=== PATIENT | male | born 1980 | race Caucasian/White ===

== ENCOUNTER → 2019-05-19 | Outpatient (CLI) | payer OTHER ==
[2019-05-19 10:10] VITALS: BP 143/85
== END ==
LOC: OD 09:17 → EDSTATUS 05-21 09:00
PROVIDERS: ATTEND Orthopaedic Surgery
DX: Z53.9 Procedure and treatment not carried out, unspecified reason (principal)

== ENCOUNTER 2019-06-30 08:01 | Inpatient (IN) | payer OTHER ==
[~2019-06-30 08:01] MED LIST: CEFAZOLIN SODIUM 2 GM in DEXTROSE 5%-WATER 100 ML IV PRN; LACTATED RINGERS 1000 ML IV PRN; LIDOCAINE 0.5% INJ-PF (5 MG/ML) 50 ML SDV SUBCUT PRN
[2019-06-30] MEDS ORDERED: DEXAMETHASONE SOD PHOSPHATE INJ 4 MG/1 ML VIAL ONE (08:49)
[2019-06-30] MEDS ORDERED: ONDANSETRON HCL INJ/PF 4 MG/2 ML SDV ONE (08:49)
[2019-06-30] MEDS ORDERED: SUCCINYLCHOLINE CHLORIDE INJ 200 MG/10 ML VIAL ONE (08:49)
[2019-06-30] MEDS ORDERED: MINERAL OIL (STERILE) 10 ML VIAL ONE (10:51)
[2019-06-30] MEDS ORDERED: HEPARIN SOD (PORCINE) 1,000 UNIT/ML 10 ML VIAL ONE (10:51)
[2019-06-30] MEDS ORDERED: BUPIVACAINE HCL 0.5 % INJ/PF 30 ML SDV ONE (10:51)
[2019-06-30] MEDS ORDERED: BACITRACIN INJ 50,000 UNIT VIAL ONE ×2 (10:52→11:27)
[2019-06-30] MEDS ORDERED: FENTANYL CITRATE INJ/PF 100 MCG/2 ML AMPUL ONE (11:03)
[2019-06-30] MEDS ORDERED: HYDROMORPHONE HCL INJ/PF 2 MG/ML AMPULE ONE ×2 (11:03→13:06)
[2019-06-30] MEDS ORDERED: MIDAZOLAM 2 MG/2 ML INJ ONE (11:03)
[2019-06-30] MEDS ORDERED: PROPOFOL 2,000 MG/200 ML INFUS..BTL IV ONE (11:03)
[2019-06-30] MEDS ORDERED: DIPHENHYDRAMINE HCL 50 MG/ML VIAL IV PRN ×2 (12:16→15:33)
[2019-06-30] MEDS ORDERED: MORPHINE SULFATE 10 MG/ML INJ IV PRN ×2 (12:16→14:39)
[2019-06-30] MEDS ORDERED: ONDANSETRON HCL INJ/PF 4 MG/2 ML SDV IV PRN ×2 (12:16→15:09)
[2019-06-30] MEDS ORDERED: FENTANYL CITRATE INJ/PF 100 MCG/2 ML AMPUL IV PRN ×3 (12:16)
[2019-06-30] MEDS ORDERED: MEPERIDINE HCL/PF INJ 25 MG/1 ML DISP.SYRIN IV PRN (12:16)
[2019-06-30] MEDS ORDERED: BUPIVACAINE INJ/PF LIPOSOME/PF 266 MG/20 ML SDV ONE (13:03)
[2019-06-30] MEDS ORDERED: OXYCODONE HCL IR 5 MG TABLET PO PRN (14:35)
--- NOTE | 2019-06-30 14:36 | Operative Report ---
Operative Report DATE OF SURGERY: 06/30/19 PREOPERATIVE DIAGNOSIS: Recurrent disc herniation L5-S1. stenosis L5-S1. Dege nerative disc disease L5-S1 and back pain radiculitis L5-S1 POSTOPERATIVE DIAGNOSIS: Recurrent disc herniation L5-S1. stenosis L5-S1. Degenerative disc disease L5-S1 and back pain radiculitis L5-S1 OPERATION: L5-S1 anterior lateral interbody spacer and fusion L5-S1 posterior instrumentation robotically assisted and left iliac crest aspiration through a separate incision for bone marrow aspirate for concentration to be used an interbody spacer with the allograft. SURGEON: PETE RUBALCAVA 1ST ELECTRICAL AND INSTRUMENT TECHNICIAN: ROSANA RENAE ANESTHESIA: GA ESTIMATED BLOOD LOSS: 150 cc INTRAOPERATIVE FINDINGS: Hardware utilized was the [employer] screws 6.5 x 45 mm screws x2 in 6.5 x 40 mm screws x2 and 40 mm linette on the left and 35 mm linette on the right as well as allograft and spinalogy 22 mm interbody spacer PROCEDURE: The patient is brought into the room and placed under anesthesia. The patient received 2 g of Ancef 1 hour of cut time. After appropriate surgical timeout and positioning the patient in the prone position on the Grant table C-arm fluoroscopy is brought in to verify good visualization of the L4-5 level. Neuro monitoring leads are positioned and placed preoperatively. After completion of prepping and draping the posterior superior iliac spine on the right side is palpated. A small stab incision is carried out through the skin and a bolts is drilled into the posterior superior iliac spine to be used as an anchor to the robotic system. The left iliac crest is aspirated through a separate stab incision and a total of 60 cc of bone marrow aspirate are obtained from 2 diffe rent sites and concentrated to be used an interbody spacer as bone marrow aspirate concentrate with the allograft that we prate placed in the interbody spacer. After positioning the [employer] robotic system to the table and attaching it with a ball tip to the patient to the posterior superior iliac spine on the right side preoperative scan is performed verifying all the instruments and the position of the robot. 2 verification C arm images are obtained preoperatively and matched with the preoperative CT scan. Then the robot arm is positioned to the left than the right side of the patient for placement of the screws. Small stab incisions are placed at each level to allow entry through the skin and then the guide is then positioned at L5 and S1 then the drill bit is passed and then the appropriate length screw is positioned. C-arm fluoroscopy was obtained to verify position of the screws as a backup to the robotic system. The screws are then stimulated to thresholds greater than 32 mA using a ball-tipped stimulator. Cranio-motor testing is then also obtained and found to be stable. Caps are placed over the tulips to hold them in position. Attention was then paid to the left side where a separate portal was created using the robotic arm to allow entry into the anterior lateral disc at L5-S1. This entry portal is anterior to the transverse process and stimulation with the tip of the probe is used to maintain that there is no stimulation at a threshold of 10 mA fluoroscopy was used to verify the position of the portal and upon entry into the disc space the guidewire is introduced into the disc space and over that the spine [place] portal is then introduced into the disc space. Making sure that there is no free EMG activity occurring the discectomy is performed using endplate curettes endplate violet and the drill bit and pituitaries and then brushes. The verify balloon is introduced into the disc space to verify good contact with the endplates. The spineology mesh spacer 22 mm is filled with bone marrow aspirate concentrate and placed in the interbody space filled with demineralized bone matrix and under C-arm fluoroscopy the correction of the collapse disc space is noted and good positioning of the spacer. After filling the spacer with bone the spacer is locked into position and disconnected from the portal and then new motor testing is obtained to show maintenance of her monitoring signals. Attention is then paid to placement of the rods the caliper is utilized and the rods utilized are 40 liters on the left and 35 mm on the right. These rods are positioned and locked into place and final tightened and final C-arm images are obtained in AP and lateral position showing good position of the interbody spacer and the screws and the rods. Final cranial motor testing is obtained and found to be stable. The wounds were then irrigated with copious Arent amount of bacitracin irrigation and the subcu was reapproximated with 2-0 Vicryl in the deep and superficial layers were infiltrated with 1.3% Exparel 20 cc mixed with 20 cc of 0.5 bupivacaine plain. The skin is closed with Dermabond. And Steri- Strips are placed on top of that after the Dermabond dried. Wounds are dressed in 4 x 4 and coverall. Patient tolerated procedure well.
[2019-06-30] MEDS ORDERED: METHOCARBAMOL INJ/PF 1000 MG/10 ML SDV ONE (14:53)
[2019-06-30] MEDS ORDERED: OXYCODONE HCL IR 5 MG TABLET ONE (14:53)
[2019-06-30] MEDS: FENTANYL CITRATE INJ/PF 100 MCG/2 ML AMPUL ONE ×2 (14:55→15:00)
[2019-06-30] MEDS ORDERED: PROMETHAZINE HCL 25 MG TABLET PO PRN (15:10)
[2019-06-30] MEDS ORDERED: PROMETHAZINE HCL INJ 25 MG/1 ML VIAL IM PRN (15:11)
[2019-06-30] MEDS ORDERED: METHOCARBAMOL 750 MG TABLET PO PRN (15:12)
[2019-06-30] MEDS ORDERED: DIAZEPAM 5 MG TABLET PO PRN (15:12)
[2019-06-30] MEDS ORDERED: MAGNESIUM HYDROXIDE SUSP 30 ML UDCUP PO PRN (15:18)
--- NOTE | 2019-06-30 15:24 | RADIOLOGY REPORT (SQ) ---
EXAM DESCRIPTION: NO CHG FLUORO; L SPINE 2 VIEWS COMPLETED DATE/TIME: 06/30/2019 3:11 pm REASON FOR STUDY: LUMBAR SPINE FUSION ASSISTED WITH FLUOROSCOPY IN OR M51.36 OTHER INTERVERTEBRAL D ISC DEGENERATION, LUMBAR REGION M51.16 INTERVERTEBRAL DISC DISORDERS W RADICULOPATHY, LUMBAR M48.061 SPINAL STENOSIS, LUMBAR REGION WITHOUT NEUROGENIC CL COMPARISON: None. FLUOROSCOPY TIME: 1.1 minutes 3 Images saved to PACS TECHNIQUE: Intra-operative images acquired during surgical procedure to evaluate progress. NUMBER OF IMAGES: 3 LIMITATIONS: None. FINDINGS: Limited intraoperative fluoroscopic images obtained to evaluate progress. Please see oper ative report for detailed description. IMPRESSION: IMAGE(S) OBTAINED DURING PROCEDURE. COMMENT: Quality ID [id number]: Final reports for procedures using fluoroscopy that document radiation exp osure indices, or exposure time and number of fluorographic images (if radiation exposure indices are not available) Please consult full operative report of the attending physician for description of the procedure. TECHNICAL DOCUMENTATION: JOB ID: [id number] 2010 [employer]- All Rights Reserved Reading location - IP/workstation name: [email or web address]
--- NOTE | 2019-06-30 15:24 | RADIOLOGY REPORT (SQ) ---
EXAM DESCRIPTION: NO CHG FLUORO; L SPINE 2 VIEWS COMPLETED DATE/TIME: 06/30/2019 3:11 pm REASON FOR STUDY: LUMBAR SPINE FUSION ASSISTED WITH FLUOROSCOPY IN OR M51.36 OTHER INTERVERTEBRAL D ISC DEGENERATION, LUMBAR REGION M51.16 INTERVERTEBRAL DISC DISORDERS W RADICULOPATHY, LUMBAR M48.061 SPINAL STENOSIS, LUMBAR REGION WITHOUT NEUROGENIC CL COMPARISON: None. FLUOROSCOPY TIME: 1.1 minutes 3 Images saved to PACS TECHNIQUE: Intra-operative images acquired during surgical procedure to evaluate progress. NUMBER OF IMAGES: 3 LIMITATIONS: None. FINDINGS: Limited intraoperative fluoroscopic images obtained to evaluate progress. Please see oper ative report for detailed description. IMPRESSION: IMAGE(S) OBTAINED DURING PROCEDURE. COMMENT: Quality ID [id number]: Final reports for procedures using fluoroscopy that document radiation exp osure indices, or exposure time and number of fluorographic images (if radiation exposure indices are not available) Please consult full operative report of the attending physician for description of the procedure. TECHNICAL DOCUMENTATION: JOB ID: [id number] 2010 [employer]- All Rights Reserved Reading location - IP/workstation name: [email or web address]
[2019-06-30] MEDS ORDERED: POTASSI CL 20 MEQ/D5-1/2NS 1L 1000 ML IV PRN (15:31)
[2019-06-30] MEDS ORDERED: DIPHENHYDRAMINE HCL 25 MG CAPSULE PO PRN (15:33)
[2019-06-30] MEDS: ACETAMINOPHEN 325 MG TABLET PO SCH ×2 (16:24→21:52)
[2019-06-30] MEDS: METHOCARBAMOL 750 MG TABLET PO SCH ×2 (16:25→22:00)
[2019-06-30] MEDS: SENNOSIDES/DOCUSATE 8.6-50 MG 1 EACH TABLET PO SCH (17:23)
[2019-06-30] MEDS ORDERED: CEFAZOLIN SODIUM 2 GM in DEXTROSE 5%-WATER 100 ML IV SCH ×2 (20:00→22:00)
[2019-07-01] MEDS ORDERED: NALOXONE HCL INJ/PF 0.4 MG/1 ML SDV ONE (03:21)
[2019-07-01] MEDS: METHOCARBAMOL 750 MG TABLET PO SCH (06:25)
[2019-07-01] MEDS: SENNOSIDES/DOCUSATE 8.6-50 MG 1 EACH TABLET PO SCH (09:29)
[2019-07-01] MEDS ORDERED: POLYETHYLENE GLYCOL 3350 POWDER 17 GM/1 PACKET PO SCH (10:00)
--- NOTE | 2019-07-01 12:20 | PDOC PROGRESS REPORT ---
Subjective Progress Note for:: 07/01/19 Subjective:: Postop day 1 lumbar fusion: Patient reports he is doing well having upper time of the exam in his bed, he is eating well drinking well having no issues with bowel or bladder function is able to ambulate independently with use of walker. He reports very little pain, he reports that his bone graft site is more painful than surgical site. He reports he would like to try to go home today. Reason For Visit: M51.36 OTHER INTERVERTEBRAL DISC DEGENERATION, LUM Physical Exam Vital Signs: Temp Pulse Resp BP Pulse Ox 98.0 F 77 18 114/51 L 98 06/30/19 23:20 06/30/19 23:20 06/30/19 23:20 06/30/19 23:20 06/30/19 23:20 Intake & Output 06/30/19 07/01/19 07/02/19 06:59 06:59 06:59 Intake Total 2150 Output Total 2405 Balance -255 Weight 84.9 kg General appearance: PRESENT: no acute distress, cooperative, well-developed, well-nourished Eye exam: PRESENT: PERRLA Musculoskeletal exam: PRESENT: ambulatory, other - Lower extremities neurovascular is intact, moves feet without pain or difficulty, calves are soft and nontender, plus dorsalis pedis pulse bilaterally. Surgical site dressing is clean dry and intact, normal postoperative swelling ecchymosis and tenderness is appreciated Neurological exam: PRESENT: alert, awake Psychiatric exam: PRESENT: appropriate affect Results Laboratory Results: 06/30/19 08:42 Blood Type O POSITIVE Antibody Screen NEGATIVE Impressions: Fluoroscopy 06/30/19 00:00 IMPRESSION: IMAGE(S) OBTAINED DURING PROCEDURE. Lumbar Spine X-Ray 06/30/19 00:00 IMPRESSION: IMAGE(S) OBTAINED DURING PROCEDURE. Assessment & Plan - Diagnosis (1) Fusion of lumbar spine Is this a current diagnosis for this admission?: Yes - Time Time Spent with patient: Less than 15 minutes - Plan Summary Plan Summary: Postop day 1 lumbar fusion: Continue to progress with physical therapy as tolerated per protocol. Consider discharge home today.
--- NOTE | 2019-07-01 12:29 | PDOC DISCHARGE SUMMARY ---
General - Admit/Disc Date/PCP Admission Date/Primary Care Provider: 06/30/19 08:01 DUNCAN DUMONT MD Discharge Date: 07/01/19 - Discharge Diagnosis Final Diagnosis: S/P lumbar fusion - Assessment Summary: Patient is a pleasant 38-year-old male who was admitted on 06/30/2019 following lumbar fusion with Dr. Rubalcava. He had no complications or problems throughout his hospital stay. Is able to meet physical therapy goals. Be discharged home under his own care - Additional Information Resuscitation Status: Full Code Discharge Diet: Regular Discharge Activity: No Driving, Energy Conservation, No tub bath - sponge bath only Referrals: PETE RUBALCAVA MD [ASSOCIATE] - 07/13/19 1:30 pm Prescriptions: Hydrocodone/Acetaminophen [[place] 5-325 mg Tablet] 1 tab PO Q4HP PRN #54 tablet PRN Reason: Methocarbamol [Robaxin 750 mg Tablet] 1,500 mg PO TID PRN #90 tablet PRN Reason: Ondansetron HCl [Zofran 8 mg Tablet] 8 mg PO Q8HP PRN #30 tablet PRN Reason: Home Medications: Bupropion HCl [Wellbutrin Xl 150 mg 24hr Tablet] 1 tab PO QAM 05/19/19 Fluvoxamine Maleate 1 tab PO QAM 05/19/19 Pregabalin [Lyrica 50 mg Capsule] 50 mg PO BID 06/22/19 Hydrocodone/Acetaminophen [[place] 5-325 mg Tablet] 1 tab PO Q4HP PRN #54 tablet 07/01/19 Methocarbamol [Robaxin 750 mg Tablet] 1,500 mg PO TID PRN #90 tablet 07/01/19 Ondansetron HCl [Zofran 8 mg Tablet] 8 mg PO Q8HP PRN #30 tablet 07/01/19 Sennosides/Docusate 8.6-50 mg [Senna Plus Tablet] 2 each PO BID tablet 07/01/19 History of Present Illiness History of Present Illness: TERRELL NORIEGA is a 38 year old male, who has had chronic disc herniations in the lumbar spine. Seen and evaluated outpatient clinic and decision was made to proceed with a lumbar fusion. Please see surgical note for additional details. The surgery the patient was admitted for postoperative care management. Patient's hospital course was uneventful with no complications. He was able to meet physical therapy goals had no trouble with eating drinking or bowel or bladder function. Ambulating independently with use of walker. Hospital Course Hospital Course: Was admitted on 06/30/2019 status post lumbar fusion by for postoperative care management. No complications were noted. Met with physical therapy goals. Physical Exam Vital Signs: Temp Pulse Resp BP Pulse Ox 98.0 F 86 16 118/80 99 07/01/19 07:59 07/01/19 07:59 07/01/19 07:59 07/01/19 07:59 07/01/19 07:59 Intake & Output 06/30/19 07/01/19 07/02/19 06:59 06:59 06:59 Intake Total 2150 Output Total 2405 Balance -255 Weight 84.9 kg General appearance: PRESENT: no acute distress, cooperative, well-developed, well-nourished Head exam: PRESENT: normocephalic Eye exam: PRESENT: PERRLA Mouth exam: PRESENT: moist Vascular exam: PRESENT: normal capillary refill Rectal exam: PRESENT: deferred Extremities exam: ABSENT: calf tenderness, joint swelling Musculoskeletal exam: PRESENT: ambulatory, other - Bilateral lower extremities, calves are soft and nontender, plus dorsalis pedis pulse bilaterally, feet without pain or difficulty, dressing is clean dry and intact. Normal postoperative swelling ecchymosis and tenderness is appreciated. Neurological exam: PRESENT: alert, normal gait Psychiatric exam: PRESENT: normal mood Focused psych exam: ABSENT: delusional, euphoric, flight of ideas Skin exam: PRESENT: normal color Results Laboratory Results: Blood Type O POSITIVE 06/30/19 08:42 Antibody Screen NEGATIVE 06/30/19 08:42 Impressions: Fluoroscopy 06/30/19 00:00 IMPRESSION: IMAGE(S) OBTAINED DURING PROCEDURE. Lumbar Spine X-Ray 06/30/19 00:00 IMPRESSION: IMAGE(S) OBTAINED DURING PROCEDURE. Plan Health Concerns: None Plan of Treatment: Discharge home
[2019-07-01 12:42] VITALS: BP 113/77
== END 2019-07-01 13:55 | disposition home or self-care (01) | DRG 460 ==
LOC: INOR 08:01 → 4W 16:07
PROVIDERS: ADMIT Orthopaedic Surgery; ATTEND Orthopaedic Surgery
PROC: 07DR3ZZ Extraction of Iliac Bone Marrow, Percutaneous Approach (ICD-10-PCS; 2019-06-30)
PROC: 8E0W8CZ Robotic Assisted Procedure of Trunk Region, Via Natural or Artificial Opening Endoscopic (ICD-10-PCS; 2019-06-30)
PROC: 0SG33A0 Fusion of Lumbosacral Joint with Interbody Fusion Device, Anterior Approach, Anterior Column, Percutaneous Approach (ICD-10-PCS; principal; 2019-06-30 10:00)
DX: M51.36 Other intervertebral disc degeneration, lumbar region (principal); M51.17 Intervertebral disc disorders with radiculopathy, lumbosacral region; M48.061 Spinal stenosis, lumbar region without neurogenic claudication; M54.5 Low back pain; G47.30 Sleep apnea, unspecified; R20.8 Other disturbances of skin sensation; F41.8 Other specified anxiety disorders
CPT/HCPCS: 00630; 36415; 72100; 86850; 86900; 86901; 94660; C9290; J0330; J0690; J1100; J1170; J1644; J2250; J2270; J2405; J2704; J2800; J3010; J3480; J3490; J7060